=== PATIENT | male | born 1970 ===

== ENCOUNTER 2018-08-17 06:22 | Emergency (ER) | payer SELFPAY ==
[~2018-08-17] VITALS: Ht 182.9 cm; Wt 89.6 kg
[2018-08-17 06:33] VITALS: BP 114/74
== END 2018-08-17 07:08 | disposition left against medical advice (07) ==
LOC: ED 07:02
DX: Z53.21 Procedure and treatment not carried out due to patient leaving prior to being seen by health care provider (principal)